=== PATIENT | female | born 1975 | race Caucasian/White ===

== ENCOUNTER 2017-07-10 14:39 | Emergency (ER) | payer BC ==
[2017-07-10 14:46] VITALS: BP 133/79; PULSE 87; TEMP 98; BMI 29.6
--- NOTE | 2017-07-10 14:48 | PDOC ---
Rapid Medical Evaluation Time Seen by Provider: 07/10/17 14:42 Medical Evaluation: Allergies Allergy/AdvReac Type Severity Reaction Status Date / Time No Known Allergies Allergy Verified 06/10/15 22:39 I have performed a brief in-person evaluation of this patient. The patient presents with a chief complaint of: right 5th finger pain and swelling x 2 weeks. Patient fell on her right hand 2 weeks ago. Has been swollen and deformed ever since; can't bend it. Pertinent physical exam findings: PIP joint of 5th digit significantly swollen with decreased ROM. Possibly dislocated or fractured and already healing incorrectly. attempted to reduce in triage but was unsuccessful I have ordered the following: xray right finger The patient will proceed to the ED for further evaluation. Discharge Disposition - Diagnosis Finger pain, right - Referrals Referrals: Bashir Archuleta [Primary Care Provider] - - Patient Instructions - Post Discharge Activity
--- NOTE | 2017-07-10 15:12 | PDOC ---
*Physical Exam - Vital Signs Last Vital Signs Temp Pulse Resp BP Pulse Ox 98.0 F 87 16 133/79 99 07/10/17 14:44 07/10/17 14:44 07/10/17 14:44 07/10/17 14:44 07/10/17 14:44 - Physical Exam Comments: There is mild swelling around right PIPJ of the fifth finger with associated tenderness at the middle phalanx. FDS and FDP are well preserved. There are no gross sensory or motor deficits. Upon trying to make a fist she is about 2 cm away from her palm in regards to the right fifth finger. There is no appreciable malrotation. 07/10/17 15:09 Medical Decision Making - Medical Decision Making 07/10/17 15:10 x-rays of theht fifth fing small fractu *DC/Admit/Observation/Transfer Diagnosis at time of Disposition: Finger pain, right, Fracture, finger - Discharge Dispostion Disposition: HOME Condition at time of disposition: Stable Decision to Admit order: No - Referrals Referrals: Bashir Archuleta [Primary Care Provider] - Yonatan Puckett MD [Staff Physician] - - Patient Instructions Printed Discharge Instructions: Finger Fracture, DI for Finger Fracture Additional Instructions: We have koko taped your fingers together. He can continue to do this on her own at home. It is important to try to make a full fist so you don't get stiffer then already are . follow-up with orthopedic surgery return to the emergency room if symptoms worsen or go unresolved prior to follow up - Post Discharge Activity
== END 2017-07-10 15:19 | disposition home or self-care (01) ==
LOC: JERFT 14:39
DX: S62.646A Nondisplaced fracture of proximal phalanx of right little finger, initial encounter for closed fracture (principal); W19.XXXA Unspecified fall, initial encounter; Y93.89 Activity, other specified; Y92.89 Other specified places as the place of occurrence of the external cause; Y99.8 Other external cause status
CPT/HCPCS: 73140-TC-RT-FY; 99281-25

== ENCOUNTER 2023-02-03 09:25 | Day surgery (SDC) | payer BC ==
[2023-02-03 09:30] VITALS: BMI 30.1
[2023-02-03] MEDS ORDERED: ONDANSETRON 4 MG/2 ML VIAL IVPUSH ONE (09:50)
[2023-02-03] MEDS ORDERED: ACETAMINOPHEN 1000 MG/100 ML BAG IVPB ONE (09:50)
[2023-02-03] MEDS ORDERED: SODIUM CHLORIDE 1,000 ML IV STA (09:50)
[2023-02-03] MEDS ORDERED: FAMOTIDINE 20 MG/50 ML IVPB 20 MG/50 ML MG IVPB ONE ×2 (10:00→10:03)
[2023-02-03] MEDS ORDERED: ACETAMINOPHEN INJECTION 100 ML IVPB ONE (10:02)
[2023-02-03] MEDS ORDERED: ONDANSETRON 4 MG/2 ML VIAL ONE (10:02)
[2023-02-03 10:26] LABS: BASO % 0.3 % (0-2.0); EOS % 0.1 % (0-4.5); HEMATOCRIT 39.6 % (32.4-45.2); MCH 27.6 pg (25.7-33.7); MCHC 32.8 g/dl (32.0-36.0); MEAN CELL VOLUME 84.1 fl (80-96); MEAN PLT VOLUME 7.5 fl (7.5-11.1); MONO % 2.7 % (3.8-10.2); NEUT % 88.9 % (42.8-82.8); PLATELET COUNT 340 10^3/uL (134-434); RBC 4.71 M/mm3 (3.60-5.2); RDW 13.9 % (11.6-15.6); WHITE BLOOD COUNT 14.8 K/mm3 (4.0-10.0)
[2023-02-03 11:06] LABS: ALBUMIN 3.9 g/dl (3.4-5.0); CALCIUM 8.9 mg/dL (8.5-10.1)
[2023-02-03 11:08] LABS: CREATININE 0.7 mg/dL (0.55-1.3)
[2023-02-03 11:10] LABS: BILIRUBIN,TOTAL 0.5 mg/dL (0.2-1); TOT PROT 7.6 g/dl (6.4-8.2)
[2023-02-03 11:59] LABS: EPI CELLS >36 /uL (0-25.1); HYALINE CASTS 1 /uL (0-3.1); PH,URINE 6.5 (5.0-8.0); URINE APPEARANCE CLOUDY; URINE BACTERIA 438 /uL (0-1359); URINE BILIRUBIN NEGATIVE (NEGATIVE); URINE COLOR YELLOW; URINE GLUCOSE (UA) TRACE (NEGATIVE); URINE KETONE 2+ (NEGATIVE); URINE LEUK ESTERASE NEGATIVE (NEGATIVE); URINE NITRITE NEGATIVE (NEGATIVE); URINE PROTEIN NEGATIVE (NEGATIVE); URINE RBC 217 /uL (0-23.9); URINE UROBILINOGEN 0.2 mg/dL (0.2-1.0); URINE WBC 26 /uL (0-25.8)
[2023-02-03] MEDS ORDERED: METOCLOPRAMIDE HCL INJECTION 10 MG/2 ML VIAL IVPUSH ONE (12:09)
[2023-02-03] MEDS ORDERED: morphine CARPU-JECT 4 MG/1 ML DISP.SYRIN IVPUSH ONE (12:09)
[2023-02-03] MEDS ORDERED: CEFTRIAXONE 1 GM/50 ML BAG ONE ×2 (12:19→15:59)
[2023-02-03] MEDS ORDERED: METOCLOPRAMIDE HCL INJECTION 10 MG/2 ML VIAL ONE ×2 (12:23→19:33)
[2023-02-03] MEDS ORDERED: morphine SULFATE 4 MG/ML VIAL ONE (12:23)
[2023-02-03] MEDS ORDERED: LACTATED RINGERS SOLUTION 1,000 ML/1,000 ML INFUS.BAG IV SCH (14:45)
[2023-02-03] MEDS ORDERED: TRIMETHOBENZAMIDE HCL 200MG/2ML INJ IM PRN (15:42)
[2023-02-03] MEDS ORDERED: ACETAMINOPHEN 1000 MG/100 ML BAG IVPB PRN (15:43)
[2023-02-03] MEDS ORDERED: SODIUM CHLORIDE 1,000 ML IV SCH (15:45)
[2023-02-03] MEDS ORDERED: CEFTRIAXONE 1 GM in DEXTROSE 5%-WATER - 50 ML IVPB SCH (15:45)
[2023-02-03] MEDS ORDERED: BUPIVACAINE HCL/PF 0.25% (2.5MG/ML) 10 ML VIAL ONE ×2 (15:59→17:29)
[2023-02-03] MEDS ORDERED: ONDANSETRON 4 MG/2 ML VIAL IVPUSH PRN ×2 (17:00→18:21)
[2023-02-03] MEDS ORDERED: LACTATED RINGERS SOLUTION 1,000 ML IV SCH (17:00)
[2023-02-03] MEDS ORDERED: FENTANYL CITRATE/PF 50 MCG/ML VIAL ONE ×2 (17:06→17:32)
[2023-02-03] MEDS ORDERED: ROCURONIUM BROMIDE 50 MG/5 ML SYRINGE ONE (17:06)
[2023-02-03] MEDS ORDERED: PROPOFOL 40 ML ONE (17:06)
[2023-02-03] MEDS ORDERED: SUCCINYLCHOLINE CHLORIDE 200 MG/10 ML SYRINGE ONE (17:06)
[2023-02-03] MEDS ORDERED: MIDAZOLAM HCL 2 MG/2 ML SINGLE DOSE VIAL ONE (17:07)
[2023-02-03] MEDS ORDERED: BUPIVACAINE HCL/PF 0.25% (2.5MG/ML) 10 ML VIAL IJ ONE (17:27)
[2023-02-03] MEDS ORDERED: SUGAMMADEX SODIUM 200 MG/2 ML VIAL ONE (17:44)
[2023-02-03] MEDS ORDERED: morphine CARPU-JECT 2 MG/1 ML DISP.SYRIN IVPUSH PRN (18:21)
[2023-02-03] MEDS ORDERED: METOCLOPRAMIDE HCL INJECTION 10 MG/2 ML VIAL IVPB ONE (19:37)
[2023-02-03 21:35] VITALS: RESP 18
[2023-02-03] MEDS: ACETAMINOPHEN 500 MG TABLET (FP) PO SCH (23:03)
[2023-02-03] MEDS: IBUPROFEN 600 MG TABLET (FP) PO SCH (23:05)
[2023-02-04] MEDS: LACTATED RINGERS SOLUTION 1,000 ML IV SCH ×2 (02:13→07:13)
[2023-02-04] MEDS: ACETAMINOPHEN 500 MG TABLET (FP) PO SCH ×2 (04:59→10:16)
[2023-02-04] MEDS: IBUPROFEN 600 MG TABLET (FP) PO SCH ×2 (04:59→10:15)
[2023-02-04] MEDS ORDERED: CEFTRIAXONE 1 GM in DEXTROSE 5%-WATER - 50 ML IVPB SCH (10:00)
[2023-02-04 13:05] VITALS: BP 118/56; PULSE 98; TEMP 98.2
== END 2023-02-04 14:10 | disposition home or self-care (01) ==
LOC: JER 09:25 → JERBED 14:34 → UNDOADMIN 14:34 → J8W 20:43 → JERBED 20:43 → JASUSAT 02-04 10:15 → J8W 02-04 10:26 → JASUSAT 02-04 14:10
PROVIDERS: ATTEND Nurse Practitioner Family
PROC: 0DTJ4ZZ Resection of Appendix, Percutaneous Endoscopic Approach (ICD-10-PCS; principal; 2023-02-04)
DX: K35.80 Unspecified acute appendicitis (principal)
CPT/HCPCS: 36415; 74177-TC; 76705-TC; 80053; 81003; 83690; 84702; 85025; 86850; 86900; 86901; 93005; 93010; 94760; 99285-25; Q9967